=== PATIENT | male | born 1980 | race Caucasian/White ===

== ENCOUNTER 2017-12-04 08:15 | Day surgery (SDC) | payer BC ==
[2017-12-03 14:23] VITALS: BMI 31.9
[2017-12-04] MEDS ORDERED: PROPOFOL 20 ML ONE ×2 (08:21)
[2017-12-04 08:45] VITALS: TEMP 98.4
[2017-12-04 10:06] VITALS: BP 111/70; PULSE 59
== END 2017-12-04 10:10 | disposition home or self-care (01) ==
LOC: FASU-ENDO 08:15
PROVIDERS: ATTEND Internal Medicine Gastroenterology
PROC: 0DJD8ZZ Inspection of Lower Intestinal Tract, Via Natural or Artificial Opening Endoscopic (ICD-10-PCS; principal; 2017-12-04 09:14)
DX: Z86.010 Personal history of colon polyps (principal); K57.30 Diverticulosis of large intestine without perforation or abscess without bleeding; K64.4 Residual hemorrhoidal skin tags